=== PATIENT | female | born 1995 | race Caucasian/White ===

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

== ENCOUNTER 2017-02-02 01:18 | Emergency (ER) | payer MEDICAID ==
[~2017-02-02] VITALS: Ht 154.9 cm; Wt 60.0 kg
[~2017-02-02 01:18] MED LIST: BACTDS PO; IBUP-1542 PO; OMEP20CA16 PO
[2017-02-02 01:21] VITALS: Ht 154.9 cm; Wt 60.0 kg
--- NOTE | 2017-02-02 01:30 | ERA ---
ER Documentation Chief Complaint Date/Time DATE: 02/02/17 TIME: 01:30 Chief Complaint Left pelvic pain HPI The patient is a 21-year-old female, presenting to the ER because of left pelvic pain that began about 8 PM last night, 8-10, associated with dysuria. She denies similar symptoms previously, denies fever, chills, neck pain, chest pain, abdominal pain, vomiting, diarrhea, constipation. She does not smoke nor drink, sexually active, on her menstrual period Past medical/surgical history: None ROS All systems reviewed and are negative except as per history of present illness. Medications Home Meds Active Scripts Ibuprofen* (Motrin*) 600 Mg Tab, 600 MG PO Q6H Y for PAIN AND OR ELEVATED TEMP, #20 TAB Prov:YUKO JEREZ MD 02/02/17 Ibuprofen* (Motrin*) 600 Mg Tab, 600 MG PO Q8, #30 TAB Prov:YUKO EDGAR PA-C 10/16/16 Reported Medications Acetaminophen* (Acetaminophen*) 500 MG Extra Strength Tablet, 500 MG PO Q4H Y for PAIN AND OR ELEVATED TEMP, TAB 02/02/17 Discontinued Scripts Omeprazole* (Omeprazole*) 20 Mg Capsule.dr, 20 MG PO DAILY, #10 Prov:YUKO JEREZ MD 03/29/16 Sulfamethoxazole-Trimethoprim* (Bactrim* DS) 800-160 Mg Tab, 1 TAB PO BID for 5 Days, TAB Prov:YUKO JEREZ MD 03/29/16 Allergies Allergies: Coded Allergies: No Known Drug Allergies (Verified Allergy, Unknown, 02/02/17) PMhx/Soc Hx Alcohol Use: No Hx Substance Use: No Hx Tobacco Use: No Physical Exam Vitals Vital Signs Date Time Temp Pulse Resp B/P Pulse Ox O2 Delivery O2 Flow Rate FiO2 02/02/17 01:21 98.3 87 20 122/82 100 Physical Exam Const: No acute distress. Head: Atraumatic. Eyes: Normal Conjunctiva. ENT: Normal External Ears, Nose and Mouth. Neck: Full range of motion. No meningismus. Resp: Clear to auscultation bilaterally. Cardio: Regular rate and rhythm. Abd: Soft, non distended, normal bowel sounds, non tender. Mild left pelvic tenderness Skin: No petechiae or rashes. Back: No midline or flank tenderness. Ext: No cyanosis, or edema. Neur: Awake and alert. No focal deficit Psych: Normal Mood and Affect. Results 24 hrs Laboratory Tests Test 02/02/17 02:12 02/02/17 02:57 Bedside Urine pH (LAB) 7.5 Bedside Urine Protein (LAB) 1+ Bedside Urine Glucose (UA) Negative Bedside Urine Ketones (LAB) Negative Bedside Urine Blood 3+ Bedside Urine Nitrite (LAB) Negative Bedside Urine Leukocyte Esterase (L Negative Bedside Glucose 110mg/dL Current Medications Medications (Trade) Dose Ordered Sig/Marely Route PRN Reason Start Time Stop Time Status Last Admin Dose Admin Acetaminophen/ Hydrocodone Bitart ([place] (5/325)) 1 tab ONCE ONCE PO 02/02/17 02:00 02/02/17 02:01 DC 02/02/17 02:51 Ondansetron HCl (Zofran Odt) 4 mg ONCE STAT ODT 02/02/17 01:58 02/02/17 02:01 DC 02/02/17 02:51 Procedures/[place] [id number] Radiology Main Line: [phone] DIAGNOSTIC IMAGING REPORT Patient: JORDI ARCEO : 1995 Age: 21 Sex: F MR #: [id number] DOS: 02/02/17 0158 Ordering MD: YUKO JEREZ MD Location: E/R Room/Bed: PROCEDURE: Pelvic ultrasound, limited. CLINICAL INDICATION: Pelvic pain. TECHNIQUE: Multiple sonographic images of the pelvis were obtained utilizing a transabdominal technique. The images were reviewed on a PACS workstation. COMPARISON: None. FINDINGS: The uterus is visualized and measures 6.3 x 3.4 x 4.7 cm. No abnormal uterine mass is identified. The endometrial echo complex is homogeneous and measures 2.7 mm. There is no evidence for free fluid. The right ovary has a normal echotexture and measures 3.0 x 2.3 x 2.4 cm. The left ovary has a normal echotexture and measures 3.1 x 2.5 x 2.3 cm. There is normal flow to both ovaries. No adnexal masses are identified. IMPRESSION: Unremarkable pelvic ultrasound. .Lb Pendleton MD, Date Time Electronically viewed and signed by .Lb Pendelton MD, on 02/02/2017 02:49 .T/ CC: YUKO JEREZ MD MEDICAL MAKING DECISION: The patient is a 21-year-old female, presenting with acute left pelvic pain of unclear etiology. She was treated with [place] 5 mg p.o. for pain and Zofran ODT for nausea with good response. The differential diagnoses considered include but are not limited to ovarian torsion, ovarian cyst, tubo-ovarian abscess, cystitis, PID Departure Diagnosis: Primary Impression: Pelvic pain Condition: Good Comments She was discharged with Motrin I discussed the findings with the patient. I advised the patient to follow-up with the primary physician in about 1-2 days, sooner if needed and return if any concern. YUKO JEREZ MD Feb 02, 2017 01:30
[2017-02-02] MEDS ORDERED: ONDANSETRON (ODT) 4 MG TAB ODT STA (01:58)
[2017-02-02] MEDS ORDERED: HYDROCODONE/APAP (5/325) TAB PO ONE (02:00)
[2017-02-02 02:09] LABS: URINE BLOOD (Dip) POC 3+ (NEGATIVE)
[2017-02-02] MEDS ORDERED: ACET-141 PO (02:14)
--- NOTE | 2017-02-02 02:50 | RADRPT ---
PROCEDURE: Pelvic ultrasound, limited. CLINICAL INDICATION: Pelvic pain. TECHNIQUE: Multiple sonographic images of the pelvis were obtained utilizing a transabdominal david hnique. The images were reviewed on a PACS workstation. COMPARISON: None. FINDINGS: The uterus is visualized and measures 6.3 x 3.4 x 4.7 cm. No abnormal uterine mass is identified. T he endometrial echo complex is homogeneous and measures 2.7 mm. There is no evidence for free fluid. The right ovary has a normal echotexture and measures 3.0 x 2. 3 x 2.4 cm. The left ovary has a normal echotexture and measures 3.1 x 2.5 x 2.3 cm. There is norm al flow to both ovaries. No adnexal masses are identified. IMPRESSION: Unremarkable pelvic ultrasound. .Lb Pendleton MD, MD Date Time Electronically viewed and signed by .Lb Pendleton MD, MD on 02/02/2017 02:49 .T/
[2017-02-02] MEDS ORDERED: IBUP-1542 PO (03:26)
[2017-02-02 04:12] VITALS: BP 122/82; PULSE 68; RESP 20; TEMP 98.3
== END 2017-02-02 04:16 | disposition home or self-care (01) ==
LOC: E/R 01:18
DX: R10.2 Pelvic and perineal pain (principal)
CPT/HCPCS: 76856; 81003; 82962; Z7502; Z7610

== ENCOUNTER 2019-04-01 18:04 | Emergency (ER) | payer MEDICAID ==
[~2019-04-01] VITALS: Ht 157.5 cm; Wt 59.1 kg
[~2019-04-01 18:04] MED LIST changes: +ACET-141 PO; +ACET325T33 PO; -BACTDS PO; +CEPH-443 PO; +IBUP-1561 PO; -OMEP20CA16 PO
[2019-04-01 18:08] VITALS: BP 108/59; PULSE 74; RESP 20; Ht 157.5 cm; Wt 59.1 kg
[2019-04-01] MEDS ORDERED: CEPHALEXIN 500 MG CAP PO ONE (19:30)
== END 2019-04-01 19:32 | disposition home or self-care (01) ==
LOC: FTE 18:04
DX: N39.0 Urinary tract infection, site not specified (principal)
CPT/HCPCS: 81001; 81025; 87086; Z7502; Z7610; 99283

== ENCOUNTER 2019-04-05 11:47 | Emergency (ER) | payer MEDICAID ==
[~2019-04-05] VITALS: Ht 157.5 cm; Wt 59.6 kg
[2019-04-05 11:49] VITALS: BP 122/57; PULSE 86; RESP 18; Ht 157.5 cm; Wt 59.6 kg
== END 2019-04-05 13:14 | disposition home or self-care (01) ==
LOC: FTE 11:47
DX: M54.5 Low back pain (principal)
CPT/HCPCS: 81003; 81025; Z7502; 99282

== ENCOUNTER 2019-04-14 21:36 | Emergency (ER) | payer MEDICAID ==
[~2019-04-14] VITALS: Ht 157.5 cm; Wt 60.7 kg
[~2019-04-14 21:36] MED LIST changes: +HYDR-843 PO; +METR70GE15 VAG
[2019-04-14 21:39] VITALS: BP 111/63; PULSE 73; RESP 16; Ht 157.5 cm; Wt 60.7 kg
== END 2019-04-15 00:40 | disposition home or self-care (01) ==
LOC: FTE 21:36
DX: Z76.0 Encounter for issue of repeat prescription (principal)
CPT/HCPCS: 99281